=== PATIENT | male | born 1940 | race Caucasian/White ===

== ENCOUNTER 2019-04-16 18:20 | Emergency (ER) | payer MEDICARE ==
--- NOTE | 2019-04-16 19:30 | ER Document Report ---
ED Medical Screen (RME) - General Chief Complaint: Chest Pain Stated Complaint: IRREGULAR HEART BEAT Time Seen by Provider: 04/16/19 19:20 - HPI Notes: 04/16/19 19:25 Patient is a 79-year-old male with a history of anxiety and on propranolol who presents complaining of intermittent palpitations for the past couple years, but increasing over the past couple months. Patient states that it bothers him and does not like the feeling of "missing a beat." He is otherwise eating and drinking without difficulty. He has no other concerns or complaints. Patient is very adamant that this is not chest pain. He does not have any shortness of breath or dyspnea on exertion associated. No syncope. Denies any prolonged immobilization, distance travel, recent surgery/trauma, personal cancer history, hormone use, current smoking, or previous DVT/PE. Denies العراقي, fever, neck pain, URI, n/v/d, Abd pain, dysuria, back pain, or rash. I have treated and performed a rapid initial assessment of this patient. A comprehensive ED assessment and evaluation of the patient, analysis of test results and completion of medical decision making process will be conducted by additional ED providers. PHYSICAL EXAMINATION: EKG: some PAC's noted on EKG. GENERAL: Well-appearing, well-nourished and in no acute distress. A&Ox4. Answers questions appropriately. LUNGS: Breath sounds clear to auscultation bilaterally and equal. No wheezes rales or rhonchi. HEART: Regular rate and rhythm without murmurs, rubs, gallops. Extremities: No cyanosis, clubbing, or edema b/l. Sulema negative bilaterally. No lower extremity asymmetry. NEUROLOGICAL: Normal speech, normal gait. PSYCH: Normal mood, normal affect. - Related Data Allergies/Adverse Reactions: No Known Allergies Allergy (Verified 04/16/19 18:22) Physical Exam - Vital signs Vitals: Temp Pulse Resp BP Pulse Ox 97.9 F 60 14 155/87 H 98 04/16/19 18:42 04/16/19 18:42 04/16/19 18:42 04/16/19 18:42 04/16/19 18:42 Course - Vital Signs Vital signs: Temp Pulse Resp BP Pulse Ox 97.9 F 60 14 155/87 H 98 04/16/19 18:42 04/16/19 18:42 04/16/19 18:42 04/16/19 18:42 04/16/19 18:42
[2019-04-16 19:57] LABS: ABSOLUTE BASOPHILS # (AUTO) 0.1 10^3/uL (0.0-0.2); ABSOLUTE EOSINOPHILS # (AUTO) 0.6 10^3/uL (0.0-0.6); ABSOLUTE LYMPHOCYTES (AUTO) 3.2 10^3/uL (0.5-4.7); ABSOLUTE MONOCYTES (AUTO) 0.9 10^3/uL (0.1-1.4); ABSOLUTE NEUT (AUTO) 7.9 10^3/uL (1.7-8.2); BASOPHILS % (AUTO) 0.8 % (0-2); EOSINOPHILS % (AUTO) 4.8 % (0-6); HEMATOCRIT 48.3 % (37.9-51.0); HEMOGLOBIN 16.9 g/dL (13.5-17.0); LYMPHOCYTES % (AUTO) 25.5 % (13-45); MEAN CORPUSCULAR HEMOGLOBIN 31.6 pg (27.0-33.4); MEAN CORPUSCULAR HGB CONC 35.1 g/dL (32.0-36.0); MEAN CORPUSCULAR VOLUME 90 fl (80-97); MONOCYTES % (AUTO) 6.9 % (3-13); PLATELET COUNT 237 10^3/uL (150-450); RED BLOOD COUNT 5.36 10^6/uL (4.35-5.55); RED CELL DISTRIBUTION WIDTH 13.1 % (11.5-14.0); TOTAL CELLS COUNTED % (AUTO) 100 %; WHITE BLOOD COUNT 12.7 10^3/uL (4.0-10.5)
[2019-04-16 20:16] LABS: ALBUMIN 4.3 g/dL (3.5-5.0); ALKALINE PHOSPHATASE 101 U/L (38-126); ANION GAP 8 (5-19); ASPARTATE AMINO TRANSFERASE 20 U/L (17-59); BILIRUBIN,DIRECT 0.2 mg/dL (0.0-0.4); BILIRUBIN,TOTAL 0.6 mg/dL (0.2-1.3); BLOOD UREA NITROGEN 15 mg/dL (7-20); CALCIUM 9.6 mg/dL (8.4-10.2); CARBON DIOXIDE 29 mmol/L (22-30); CHLORIDE 102 mmol/L (98-107); GLUCOSE 101 mg/dL (75-110); POTASSIUM 4.8 mmol/L (3.6-5.0); TOTAL PROTEIN 7.2 g/dL (6.3-8.2)
--- NOTE | 2019-04-16 20:30 | RADIOLOGY REPORT (SQ) ---
XR CHEST 2 VIEWS EXAM DATE: 04/16/2019 7:24 PM CDT HISTORY: Palpitations. COMPARISON: None. FINDINGS: The heart size is within normal limits. No consolidation, pleural effusion, or pneumothorax is seen. Mild bilateral interstitial changes are seen. The bony thorax is intact. IMPRESSION: No evidence of acute cardiopulmonary disease.
[2019-04-16 21:10] LABS: APPEARANCE,URINE CLEAR; BILIRUBIN,URINE NEGATIVE (NEGATIVE); COLOR,URINE YELLOW; GLUCOSE, URINE NEGATIVE (NEGATIVE); KETONES,URINE NEGATIVE (NEGATIVE); LEUKOCYTE ESTERASE,URINE NEGATIVE (NEGATIVE); NITRITE,URINE NEGATIVE (NEGATIVE); PROTEIN,URINE NEGATIVE (NEGATIVE); URINE SPECIFIC GRAVITY 1.015
--- NOTE | 2019-04-16 21:35 | ER Document Report ---
ED Cardiac - General Chief Complaint: Chest Pain Stated Complaint: IRREGULAR HEART BEAT Time Seen by Provider: 04/16/19 19:20 Primary Care Provider: ARIEL MINA FNP-C [Primary Care Provider] - Follow up as needed Mode of Arrival: Ambulatory Information source: Patient Notes: RME note: Patient is a 79-year-old male with a history of anxiety and on propranolol who presents complaining of intermittent palpitations for the past couple years, but increasing over the past couple months. Patient states that it bothers him and does not like the feeling of "missing a beat." He is otherwise eating and drinking without difficulty. He has no other concerns or complaints. Patient is very adamant that this is not chest pain. He does not have any shortness of breath or dyspnea on exertion associated. No syncope. Denies any prolonged immobilization, distance travel, recent surgery/trauma, personal cancer history, hormone use, current smoking, or previous DVT/PE. Denies العراقي, fever, neck pain, URI, n/v/d, Abd pain, dysuria, back pain, or rash. - Related Data Allergies/Adverse Reactions: No Known Allergies Allergy (Verified 04/16/19 18:22) Past Medical History - General Information source: Patient - Social History Smoking Status: Former Smoker Frequency of alcohol use: None Drug Abuse: None Family History: Reviewed & Not Pertinent Patient has suicidal ideation: No Patient has homicidal ideation: No - Past Medical History Cardiac Medical History: Reports: Hx Hypertension Psychiatric Medical History: Reports: Hx Anxiety, Hx Post Traumatic Stress Disorder Past Surgical History: Reports: Hx Cholecystectomy - Immunizations Immunizations up to date: Yes Review of Systems - Review of Systems Constitutional: No symptoms reported EENT: No symptoms reported Cardiovascular: Palpitations Respiratory: No symptoms reported Gastrointestinal: No symptoms reported Genitourinary: No symptoms reported Male Genitourinary: No symptoms reported Musculoskeletal: No symptoms reported Skin: No symptoms reported Hematologic/Lymphatic: No symptoms reported Neurological/Psychological: No symptoms reported Physical Exam - Vital signs Vitals: Temp Pulse Resp BP Pulse Ox 97.9 F 60 14 155/87 H 98 04/16/19 18:42 04/16/19 18:42 04/16/19 18:42 04/16/19 18:42 04/16/19 18:42 - Notes Notes: PHYSICAL EXAMINATION: GENERAL: Well-appearing, well-nourished and in no acute distress. HEAD: Atraumatic, normocephalic. EYES: Pupils equal round and reactive to light, extraocular movements intact, sclera anicteric, conjunctiva are normal. ENT: Nares patent, oropharynx clear without exudates. Moist mucous membranes. NECK: Normal range of motion, supple without lymphadenopathy LUNGS: Breath sounds clear to auscultation bilaterally and equal. No wheezes rales or rhonchi. HEART: Regular rate and rhythm without murmurs ABDOMEN: Soft, nontender, nondistended abdomen. No guarding, no rebound. No masses appreciated. Musculoskeletal: Normal range of motion, no pitting or edema. No cyanosis. NEUROLOGICAL: Cranial nerves grossly intact. Normal speech, normal gait. Normal sensory, motor exams PSYCH: Normal mood, normal affect. SKIN: Warm, Dry, normal turgor, no rashes or lesions noted. Course - Re-evaluation Re-evalutation: Patient appears well, nontoxic in his work-up here in the emergency department today is unremarkable. His EKG shows a sinus rhythm, normal axis, no ST segment elevations. 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 He has not had any palpitations today in the Ed and will be discharged home. Laboratory 04/16/19 04/16/19 04/16/19 19:42 19:42 19:42 WBC 12.7 H RBC 5.36 Hgb 16.9 Hct 48.3 MCV 90 MCH 31.6 MCHC 35.1 RDW 13.1 Plt Count 237 Lymph % (Auto) 25.5 [place] % (Auto) 6.9 Eos % (Auto) 4.8 Baso % (Auto) 0.8 Absolute Neuts (auto) 7.9 Absolute Lymphs (auto) 3.2 Absolute Monos (auto) 0.9 Absolute Eos (auto) 0.6 Absolute Basos (auto) 0.1 Seg Neutrophils % 62.0 Sodium 139.3 Potassium 4.8 Chloride 102 Carbon Dioxide 29 Anion Gap 8 BUN 15 Creatinine 1.20 Est GFR ( Amer) > 60 Est GFR (MDRD) Non-Af 59 L Glucose 101 Calcium 9.6 Magnesium 2.1 Total Bilirubin 0.6 Direct Bilirubin 0.2 Neonat Total Bilirubin Not Reportable Neonat Direct Bilirubin Not Reportable Neonat Indirect Bili Not Reportable AST 20 ALT 13 Alkaline Phosphatase 101 Total Protein 7.2 Albumin 4.3 TSH 2.86 Urine Color Urine Appearance Urine pH Ur Specific [place] Urine Protein Urine Glucose (UA) Urine Ketones Urine Blood Urine Nitrite Urine Bilirubin Urine Urobilinogen Ur Leukocyte Esterase Urine WBC (Auto) Urine RBC (Auto) Urine Mucus (Auto) Urine Ascorbic Acid 04/16/19 20:49 WBC RBC Hgb Hct MCV MCH MCHC RDW Plt Count Lymph % (Auto) [place] % (Auto) Eos % (Auto) Baso % (Auto) Absolute Neuts (auto) Absolute Lymphs (auto) Absolute Monos (auto) Absolute Eos (auto) Absolute Basos (auto) Seg Neutrophils % Sodium Potassium Chloride Carbon Dioxide Anion Gap BUN Creatinine Est GFR ( Amer) Est GFR (MDRD) Non-Af Glucose Calcium Magnesium Total Bilirubin Direct Bilirubin Neonat Total Bilirubin Neonat Direct Bilirubin Neonat Indirect Bili AST ALT Alkaline Phosphatase Total Protein Albumin TSH Urine Color YELLOW Urine Appearance CLEAR Urine pH 7.0 Ur Specific [place] 1.015 Urine Protein NEGATIVE Urine Glucose (UA) NEGATIVE Urine Ketones NEGATIVE Urine Blood NEGATIVE Urine Nitrite NEGATIVE Urine Bilirubin NEGATIVE Urine Urobilinogen 2.0 H Ur Leukocyte Esterase NEGATIVE Urine WBC (Auto) 0 Urine RBC (Auto) 2 Urine Mucus (Auto) RARE Urine Ascorbic Acid NEGATIVE - Vital Signs Vital signs: Temp Pulse Resp BP Pulse Ox 97.9 F 60 23 H 156/91 H 97 04/16/19 18:42 04/16/19 18:42 04/16/19 22:01 04/16/19 22:01 04/16/19 22:01 - Laboratory Result Diagrams: 04/16/19 19:42 04/16/19 19:42 Laboratory results interpreted by me: 04/16/19 04/16/19 04/16/19 19:42 19:42 20:49 WBC 12.7 H Est GFR (MDRD) Non-Af 59 L Urine Urobilinogen 2.0 H Discharge - Discharge Clinical Impression: Palpitations Condition: Good Disposition: HOME, SELF-CARE Additional Instructions: Palpitations (Irregular/Rapid Heartrate) Irregular or rapid heartbeat is called "palpitation." To diagnose the cause of palpitation, we have to "catch it in the act" with an EKG. Sinus Tachycardia: This is a rapid (but NORMAL) rhythm that can be due to fever, pain, anxiety, lack of sleep, over-exertion, or drugs. Cold medications, caffeine, and diet pills are particularly likely to cause tachycardia. Usually, all that's required is rest, reassurance, and avoiding caffeine, alcohol, nicotine, and unnecessary medicines. Paroxysmal Atrial Tachycardia (PAT): This abnormally rapid heartbeat is caused by a "short circuit" in the electrical system of the heart. It is not dangerous, unless other heart disease is present. These attacks of PAT may occur occasionally for years. Medication is available for treatment. Paroxysmal Atrial Fibrillation or Atrial Flutter: This is irregular electrical activity in the upper heart chamber. These abnormal rhythms often occur with valve disease or in hearts damaged by hardening of the arteries. These rhythms usually require further testing, for example a cardiac echo. Premature Beats: Extra beats occur more commonly after caffeine, nicotine, alcohol, cold pills, diet pills. Emotional stress or fatigue also provoke them. Extra beats are only dangerous when heart disease is present. They usually need no treatment. If they're frequent, or if evidence of heart disease develops, medication can be given to suppress them. If we were unable to "catch" the palpitations on EKG, you should try to get an EKG immediately if the symptoms begin again. Contact the physician at once if you develop persistent lightheadedness, shortness of breath, chest pain, or swelling of the ankles. You were seen in the emergency department today for palpitations. We did not find anything abnormal in your work-up. Please take the medication that I have prescribed to help with your anxiety symptoms. Please take this prescription with you when you see your primary care provider and your fulling mill operator so that they are aware that you are taking the hydroxyzine. Call Wednesday to schedule follow-up appointments with them. Return to the emergency department for any new or worsening symptoms. Prescriptions: Hydroxyzine HCl [Atarax 25 mg Tablet] 1 - 2 tab PO QID #25 tablet Referrals: ARIEL MINA FNP-C [Primary Care Provider] - Follow up as needed
[2019-04-16 22:18] VITALS: BP 156/91
--- NOTE | 2019-04-16 22:39 | EKG REPORT ---
SEVERITY:- ABNORMAL ECG - SINUS RHYTHM MULTIPLE ATRIAL PREMATURE COMPLEXES NONSPECIFIC T ABNORMALITIES, INFERIOR LEADS : Confirmed by: Nathan Serrano MD 16-Apr-2019 22:38:12
== END 2019-04-16 22:46 | disposition home or self-care (01) ==
LOC: ER 18:20
DX: R00.2 Palpitations (principal); I10 Essential (primary) hypertension; Z79.899 Other long term (current) drug therapy; Z87.891 Personal history of nicotine dependence
CPT/HCPCS: 36415; 71046; 80053; 81001; 83735; 84443; 85025; 93005; 93010; 99285